=== PATIENT | female | born 1990 | race Caucasian/White ===

== ENCOUNTER 2022-03-18 15:10 | Emergency (ER) | payer BC, SELFPAY ==
[2022-03-18 16:20] VITALS: BP 0/0; PULSE 0; RESP 0; TEMP -17.7; TEMP 0
== END 2022-03-18 16:20 | disposition left against medical advice (07) ==
PROVIDERS: Emergency Provider Nurse Practitioner Family
DX: M79.10 Myalgia, unspecified site (principal); R51.9 Headache, unspecified; J45.909 Unspecified asthma, uncomplicated; F41.9 Anxiety disorder, unspecified; F17.210 Nicotine dependence, cigarettes, uncomplicated; Z79.52 Long term (current) use of systemic steroids; Z88.0 Allergy status to penicillin; Z88.1 Allergy status to other antibiotic agents; Z88.3 Allergy status to other anti-infective agents; Z87.440 Personal history of urinary (tract) infections; Z53.21 Procedure and treatment not carried out due to patient leaving prior to being seen by health care provider

== ENCOUNTER 2022-03-19 08:08 | Emergency (ER) | payer BC, SELFPAY ==
[2022-03-19 08:50] VITALS: BP 122/70; PULSE 60; RESP 19; TEMP 36.6; O2SAT 98; BMI 33.1
[2022-03-19 09:05] LABS: Apearance,Urine Clear (Clear); Bilirubin,Urine Negative (Negative); Blood, Urine Negative (Negative); Color,Urine Yellow (Yellow); Glucose,Urine (UA) Negative (Negative); Ketones,Urine Negative (Negative); Protein,Urine Negative (Negative); UTC Leukocyte Esterase,Urine Negative (Negative); UTC Nitrate,Urine Negative (Negative); UTC Pregnancy Test, Urine Negative (Negative); Urobilinogen,Urine 1 EU/dl (0.2)
[2022-03-19 09:05] LABS: UTC Influenza A Antigen Negative (Negative)
[2022-03-19 09:06] LABS: UTC Influenza B Antigen Negative (Negative)
[2022-03-19 09:11] VITALS: BP 122/70; PULSE 60; RESP 19; TEMP 36.6; O2SAT 98
--- NOTE | 2022-03-19 09:22 | EXP.UTC ---
Discharge Plan Disposition Patient Disposition: Home, Self-Care Condition: Good Prescriptions Prescriptions: New methylprednisolone [Medrol (Isaias)] 4 mg tablets,dose pack See Rx Instructions .Route .COMPLEX 6 Days Qty: 21 0RF Rx Instructions: taper pack; No Action escitalopram oxalate 20 mg tablet 20 mg PO DAILY Referrals Follow up/Referrals: Provider,Referral, [Primary Care Provider] - See instructions Activity Restrictions/Add. Instructions Additional Instructions/Restrictions: *Monitor Temp, Over the counter Motrin or Tylenol as directed/as needed Tylenol every 4 hours and Motrin every 6 hours (as long as your family doctor has told you that you can take it) for fever or pain. and straight to ER if unable to lower temp less than 101.0 after medication given *Warm salt water gargles may help to soothe the throat *Throat Lozenges? *Warm fluids like tea with honey may help to soothe the throat? *Sleep elevated *Humidifier/Vaporizer *Flonase 2 sprays in each nostril daily but be aware that it may take 2-3 days before you notice improvement *Bromfed may cause drowsiness. Know how it effects you (your child) before driving, caring for small child, or sending your child to school. Not other antihistamines/allergy medications while taking bromfed Your throat swab was sent for culture. Those results are typically sent to your primary care. Be sure to follow up in 2-3 days with your family doctor/primary care physician if no improvement so they can review those result and treat if necessary. If you don?t have a primary care doctor, I recommend you get one but in the mean time, you will have to return to a walk in clinic Follow up IMMEDIATELY for new or worsening symptoms or no Noticeable improvement over the next 48-72 hours. 911 for difficulty breathing or swallowing You were tested for today for COVID19 your test result should be back in the next 24-48 hours, you may check your results on the [facility] Clinical Impressions Clinical Impression: Viral syndrome Instructions Patient Instructions: DI for Viral Syndrome Discharge ED Provider: Nicole Díaz [facility] [place] HPI General Stated complaint: BA, Chills, ALEJO, Congestion, drainage Mode of Arrival: Ambulatory Source of Information: Patient Limitations: No Limitations Time Seen by Provider: 03/19/22 09:22 Description of Symptoms (Recalled from Triage Doc. by RN): PATIENT C/O BODY ACHES, CHILLS, HEADACHE, CONGESTION, RUNNY NOSE AND LOWER BACK PAIN X 4 DAYS HEENT Symptoms (Recalled from RN notes): Yes Resp Symptoms (Recalled from RN notes): No Skin Symptoms (Recalled from RN notes): No MS Symptoms (Recalled from RN notes): No Functional Status (Recalled from RN notes): WNL History of Present Illness Provider Complaint: Patient states that she hasnt been feeling well for about the last 3-4 days States that she has been having body aches, chills, nasal congestion and runny nose along with achy like feeling in her lower back and over all feeling ill States that she thought she may have a virus or something Related Data Home Medications Medication Instructions Recorded Confirmed escitalopram oxalate 20 mg tablet 20 mg PO DAILY Anxiety 12/15/20 03/19/22 Previous Rx's Medication Instructions Recorded methylprednisolone 4 mg tablets in See Rx Instructions .Route 03/19/22 a dose pack (Medrol (Isaias)) .COMPLEX 6 days #21 tabs Allergies Allergy/AdvReac Type Severity Reaction Status Date / Time buspirone Allergy Verified 03/19/22 09:08 Worker's Comp Is this a Worker's Comp case?: No PFSH PFSH Medical History (Updated 03/19/22 @ 09:43 by Nicole Díaz APRN) Anxiety Asthma Urinary tract infection Social History (Updated 03/19/22 @ 09:05 by Medina Horn RN) Smoking Status: Current every day smoker tobacco type: cigarettes packs per day: 1 alcohol intake: current substance use type: denies use
== END 2022-03-19 09:52 | disposition home or self-care (01) ==
PROVIDERS: Emergency Provider Nurse Practitioner
DX: R05.9 Cough, unspecified (principal); R09.89 Other specified symptoms and signs involving the circulatory and respiratory systems; B34.9 Viral infection, unspecified
CPT/HCPCS: 81003; 81025; 87804; 99212; G0463

== ENCOUNTER → 2022-08-21 15:02 | Outpatient (CLI) | payer BC, SELFPAY ==
[2022-08-21 15:45] LABS: Basophils # 0.1 K/mm3 (0-0.2); Basophils % 0.8 % (0.1-2.0); Eosinophils # 0.5 K/mm3 (0.0-0.4); Eosinophils % 4.7 % (0.1-12.0); Hematocrit 46.7 % (37.0-47.0); Hemoglobin 15.3 g/dL (12.2-16.2); Lymphocytes # 4.3 K/mm3 (0.7-4.5); Lymphocytes % 37.3 % (10-50); Mean Corpuscular HGB Conc 32.7 g/dL (31.8-35.4); Mean Corpuscular Hemoglobin 29.7 pg (27.0-31.2); Mean Corpuscular Volume 90.9 fl (81-99); Mean Platelet Volume 7.5 fl (7.4-10.4); Monocytes # 0.5 K/mm3 (0.1-1.0); Monocytes % 4.4 % (1.7-9.3); Neutrophils % 52.8 % (37.0-80.0); Platelet Count 318 K/mm3 (142-424); Red Blood Count 5.14 M/mm3 (4.20-5.40); Red Cell Distribution Width 12.8 % (11.5-17.5); White Blood Count 11.4 K/mm3 (4.8-10.8)
[2022-08-21 16:31] LABS: Hemoglobin A1C 4.7 % (4.0-6.0)
[2022-08-21 16:49] LABS: Free T4 (Free Thyroxine) 0.92 ng/dl (0.78-2.19)
[2022-08-21 16:55] LABS: 25-OH Vitamin D, Total 15.9 ng/mL (30-100)
[2022-08-21 17:13] LABS: Alanine Aminotransferase 19 U/L (12-78); Albumin Level 4.5 g/dl (3.5-5.0); Albumin/Globulin Ratio 1.7 (1.1-1.8); Alkaline Phosphatase 80 U/L (38-126); Anion Gap 10.7 mEq/L (5-15); Aspartate Amino Transferase 28 U/L (14-36); Bilirubin,Total 0.5 mg/dl (0.2-1.3); Blood Urea Nitrogen 8 mg/dl (7-17); Calcium 9.2 mg/dl (8.4-10.2); Carbon Dioxide 29 mmol/L (22.0-30.0); Chloride 105 mmol/L (98-107); Chol/HDL Ratio 2.9 (1-3.5); Cholesterol 197 mg/dl (140-200); Estimated Glomerular Filt Rate 82 ml/min (>60); GFR (African American) 99 ML/MIN (>60); Globulin 2.6 g/dL (1.3-3.2); Glucose 81 mg/dl (74-100); HDL Cholesterol 68 mg/dl (40-60); Potassium 4.7 mmoL/L (3.5-5.1); Sodium 140 mmol/L (136-145); Total Protein,Serum 7.1 g/dl (6.3-8.2); Triglycerides 71 mg/dl (30-150); VLDL Cholesterol 14 mg/dL (0-40)
[2022-08-21 17:25] LABS: Direct LDL Cholesterol 105.12 mg/dL (100-129)
[2022-08-21 17:44] LABS: Thyroid Stimulating Hormone 4.48 uIU/mL (0.465-4.68)
[2022-08-21 18:24] LABS: Iron 123 ug/dL (37-170)
[2022-08-21 18:35] LABS: Total Iron Binding Capacity 329 ug/dL (265-497)
[2022-08-23 16:23] LABS: Deamidated Gliadin Abs, IgA 4 units (0-19); Deamidated Gliadin Abs, IgG 4 units (0-19); Endomysial IgA Antibody Negative (Negative); Tissue Transglutaminase IgA Ab <2 U/mL (0-3); Tissue Transglutaminase IgG Ab 6 U/mL (0-5)
[2022-08-24 12:25] LABS: Reticulin IgA Antibody Negative titer (Neg:<1:2.5)
== END ==
PROVIDERS: Visit Provider Student in an Organized Health Care Education/Training Program
DX: Z00.00 Encounter for general adult medical examination without abnormal findings (principal); Z83.3 Family history of diabetes mellitus; Z83.49 Family history of other endocrine, nutritional and metabolic diseases; R19.7 Diarrhea, unspecified; E55.9 Vitamin D deficiency, unspecified; Z79.899 Other long term (current) drug therapy
CPT/HCPCS: 36415; 80053; 80061; 82306; 83036; 83516; 83540; 83550; 84439; 84443; 85025; 86255; 86256